=== PATIENT | female | born 1990 ===

== ENCOUNTER → 2019-01-26 | Outpatient (REF) | payer OTHER | LOC: M LAB LCGH 11:20 | PROVIDERS: ATTEND Obstetrics & Gynecology | DX: Z34.90 Encounter for supervision of normal pregnancy, unspecified, unspecified trimester (principal); R87.610 Atypical squamous cells of undetermined significance on cytologic smear of cervix (ASC-US); R87.810 Cervical high risk human papillomavirus (HPV) DNA test positive ==